=== PATIENT | female | born 1935 | race Caucasian/White ===

== ENCOUNTER → 2019-02-15 | Outpatient (CLI) | payer MEDICARE, OTHER ==
[~2019-02-15] MED LIST: ACET650SUP PR; ALBU3IS INH; ALBU90OI INH; AMLO5 PO; ASCO500; ASPI325; ASPI81CH PO; ASPI81EC PO; ATEN25 PO; ATEN50 PO; ATOR40TA PO; AZIT250 PO; BENZ100A PO; CLOP75; CLOP75 PO; Cyclobenzaprine5 MG PO; FURO20 PO; GUAI120S1 PO; HYDACE5 PO; HYDACE5325 PO; HYDCHL25 PO; ISOMON60ER PO; LISI20 PO; LISI5 PO; LOSHYD; MULVITA PO; NEBI5 PO; NITR.4SL SL; Norco 5-325 Ta1 EACH PO; OXYC5 PO; POLY17UD PO; POLY500 PO; POTCHL10ER PO; PRAV20 PO; PRED10 PO; PROACE100 PO; QUIN325 PO; RANI150 PO; SIMV40 PO; SOTO80 PO; SPACE CHAMBER1 EACH MC; WARF2.5 PO; WARF5 PO; Zithromax250 MG PO
== END | disposition home or self-care (01) ==
LOC: LAB 17:23 → LAB SHORT 17:23
DX: R39.89 Other symptoms and signs involving the genitourinary system (principal)
CPT/HCPCS: 87086

== ENCOUNTER → 2019-06-02 | Outpatient (CLI) | payer MEDICARE, OTHER ==
[2019-06-03 15:07] LABS: HPV 16 Negative (Negative); HPV 18 Negative (Negative); HPV OTHER HR TYPES Negative (Negative)
== END | disposition home or self-care (01) ==
LOC: LAB SHORT 12:43 → LAB 12:43
PROVIDERS: Nurse Practitioner Women's Health
DX: Z01.419 Encounter for gynecological examination (general) (routine) without abnormal findings (principal); Z91.89 Other specified personal risk factors, not elsewhere classified
CPT/HCPCS: 87624; G0123

== ENCOUNTER 2020-03-28 11:23 | Emergency (ER) | payer MEDICARE, OTHER ==
[~2020-03-28] VITALS: Ht 162.6 cm; Wt 49.9 kg
[2020-03-28] MEDS ORDERED: Ultram50 MG PO (14:21)
== END 2020-03-28 14:27 | disposition home or self-care (01) ==
LOC: ER 11:23
DX: G44.209 Tension-type headache, unspecified, not intractable (principal)
CPT/HCPCS: 70450; 99284-25

== ENCOUNTER 2020-04-01 17:41 | Emergency (ER) | payer MEDICARE, OTHER ==
[~2020-04-01] VITALS: Ht 162.6 cm; Wt 49.4 kg
[~2020-04-01 17:41] MED LIST changes: +Ultram50 MG PO
[2020-04-01 20:09] LABS: International Normalized Ratio 1.74
== END 2020-04-01 22:06 | disposition home or self-care (01) ==
LOC: ER 17:41
PROVIDERS: Emergency Medicine
DX: K29.70 Gastritis, unspecified, without bleeding (principal); R79.1 Abnormal coagulation profile; I71.4 Abdominal aortic aneurysm, without rupture; E78.5 Hyperlipidemia, unspecified; I10 Essential (primary) hypertension; F41.9 Anxiety disorder, unspecified; Z95.5 Presence of coronary angioplasty implant and graft; Z86.79 Personal history of other diseases of the circulatory system; Z79.01 Long term (current) use of anticoagulants; Z86.73 Personal history of transient ischemic attack (TIA), and cerebral infarction without residual deficits; Z95.0 Presence of cardiac pacemaker; Z95.1 Presence of aortocoronary bypass graft; Z88.1 Allergy status to other antibiotic agents; Z88.5 Allergy status to narcotic agent; Z79.899 Other long term (current) drug therapy
CPT/HCPCS: 71275; 74175; 80053; 84484; 85025; 85379; 85610; 99284-25; Q9967

== ENCOUNTER → 2020-09-21 | Outpatient (CLI) | payer MEDICARE ==
[~2020-09-21] MED LIST changes: +TRAZ50 PO
[2020-09-21 15:20] LABS: BASOPHILS ABSOLUTE AUTO 0.03 K/mm3 (0.00-0.23); BASOPHILS PERCENT AUTO 0 % (0-2); EOSINOPHILS ABSOLUTE AUTO 0.07 K/mm3 (0.00-0.68); EOSINOPHILS PERCENT AUTO 1 % (0-6); Hematocrit 40.1 % (33.0-51.0); Hemoglobin 13.5 g/dL (11.5-16.0); IMMATURE GRAN ABSOLUTE AUTO 0.05 K/mm3 (0.00-0.10); IMMATURE GRAN PERCENT AUTO 1 % (0-1); LYMPHOCYTES ABSOLUTE AUTO 2.18 K/mm3 (0.84-5.20); LYMPHOCYTES PERCENT AUTO 21 % (21-46); MONOCYTES ABSOLUTE AUTO 0.96 K/mm3 (0.16-1.47); MONOCYTES PERCENT AUTO 9 % (4-13); Mean Corpuscular HGB 31.4 pg (26.0-34.0); Mean Corpuscular HGB Conc 33.7 g/dL (31.5-36.5); Mean Corpuscular Volume 93 fL (80-100); Mean Platelet Volume 9.7 fL (9.1-12.4); NEUTROPHILS ABSOLUTE AUTO 7.08 K/mm3 (1.96-9.15); NEUTROPHILS PERCENT AUTO 68 % (41-73); Platelet Count 265 K/mm3 (150-400); RDW Coefficient Variation 14.1 % (11.7-14.2); RDW Standard Deviation 48.7 fL (35.1-46.3); White Blood Cell Count 10.37 K/mm3 (4.00-11.30)
[2020-09-21 15:45] LABS: Alanine Aminotransfer (ALT/SGP 18 U/L (12-78); Albumin, Blood 3.2 g/dL (3.4-5.0); Alk Phos 97 U/L (50-136); Anion Gap 6 mmol/L (6-16); Aspartate Aminotrans (AST/SGOT 21 U/L (12-37); Bilirubin, Total 0.4 mg/dL (0.1-1.0); Blood Urea Nitrogen 16 mg/dL (8-24); Bun/Creatinine Ratio 21.9 (12.0-20.0); CO2, Blood 31 mmol/L (21-32); Chloride, Blood 94 mmol/L (98-108); Creatinine, Blood 0.73 mg/dL (0.40-1.00); Globulin, Blood 3.1 g/dL (2.2-4.0); Glomerular Filtration Rate >60 (60-); Glucose, Blood 109 mg/dL (70-99); Potassium, Blood 4.1 mmol/L (3.5-5.5); Sodium, Blood 131 mmol/L (136-145); Total Protein, Blood 6.3 g/dL (6.4-8.2)
[2020-09-21 18:25] LABS: Appearance, Urine Clear (Clear); Bilirubin, Urine Neg (Neg); Blood, Urine Neg (Neg); Color, Urine Yellow (P-Yellow); Glucose Qualitative, Urine Neg (Neg); Ketones, Urine Neg (Neg); Leukocyte Esterase, Urine 2+ (Neg); Nitrite, Urine Neg (Neg); Protein, Urine Neg (Neg); Urobilinogen, Urine NORM (Normal); pH, Urine 6.5 (5.0-8.0)
[2020-09-21 18:58] LABS: Red Blood Cells, Urine 0-2 /hpf (0-2)
[2020-09-21 18:59] LABS: Bacteria Few /hpf; Squamous Epithelial Cells Few /hpf (Few)
== END | disposition home or self-care (01) ==
LOC: LAB SHORT 15:14 → LAB 15:14
PROVIDERS: Registered Nurse
DX: R10.9 Unspecified abdominal pain (principal)
CPT/HCPCS: 80053; 81001; 85025; 87086

== ENCOUNTER → 2020-11-10 | Outpatient (CLI) | payer MEDICARE ==
[2020-11-10 12:24] LABS: International Normalized Ratio 2.29; Prothrombin Time Results 23.4 Sec (9.7-11.5)
[2020-11-10 12:46] LABS: Anion Gap 5 mmol/L (6-16); Blood Urea Nitrogen 20 mg/dL (8-24); Bun/Creatinine Ratio 24.6 (12.0-20.0); CO2, Blood 31 mmol/L (21-32); Calcium, Blood 9.3 mg/dL (8.5-10.1); Chloride, Blood 104 mmol/L (98-108); Creatinine, Blood 0.81 mg/dL (0.40-1.00); Glomerular Filtration Rate >60 (60-); Glucose, Blood 97 mg/dL (70-99); Potassium, Blood 4.6 mmol/L (3.5-5.5); Sodium, Blood 140 mmol/L (136-145)
== END | disposition home or self-care (01) ==
LOC: LAB 09:50 → LAB SHORT 09:50
PROVIDERS: Registered Nurse
DX: Z79.01 Long term (current) use of anticoagulants (principal); Z51.81 Encounter for therapeutic drug level monitoring; E87.1 Hypo-osmolality and hyponatremia
CPT/HCPCS: 80048; 85610

== ENCOUNTER 2021-02-16 11:05 | Emergency (ER) | payer MEDICARE ==
[~2021-02-16] VITALS: Ht 162.6 cm; Wt 46.7 kg
[~2021-02-16 11:05] MED LIST changes: -TRAZ50 PO
[2021-02-16] MEDS ORDERED: TRAZ50 PO (11:27)
[2021-02-16 11:54] LABS: BASOPHILS ABSOLUTE AUTO 0.07 K/mm3 (0.00-0.23); BASOPHILS PERCENT AUTO 1 % (0-2); EOSINOPHILS ABSOLUTE AUTO 0.17 K/mm3 (0.00-0.68); EOSINOPHILS PERCENT AUTO 2 % (0-6); Hematocrit 40.8 % (33.0-51.0); Hemoglobin 13.6 g/dL (11.5-16.0); IMMATURE GRAN ABSOLUTE AUTO 0.03 K/mm3 (0.00-0.10); IMMATURE GRAN PERCENT AUTO 0 % (0-1); LYMPHOCYTES ABSOLUTE AUTO 2.75 K/mm3 (0.84-5.20); LYMPHOCYTES PERCENT AUTO 28 % (21-46); MONOCYTES ABSOLUTE AUTO 0.79 K/mm3 (0.16-1.47); MONOCYTES PERCENT AUTO 8 % (4-13); Mean Corpuscular HGB 31.5 pg (26.0-34.0); Mean Corpuscular HGB Conc 33.3 g/dL (31.5-36.5); Mean Corpuscular Volume 94 fL (80-100); Mean Platelet Volume 9.6 fL (9.1-12.4); NEUTROPHILS ABSOLUTE AUTO 5.92 K/mm3 (1.96-9.15); NEUTROPHILS PERCENT AUTO 61 % (41-73); Platelet Count 186 K/mm3 (150-400); RDW Coefficient Variation 15.2 % (11.7-14.2); Red Blood Cell Count 4.32 M/mm3 (3.80-5.20); White Blood Cell Count 9.73 K/mm3 (4.00-11.30)
[2021-02-16 12:06] LABS: International Normalized Ratio 2.42; Prothrombin Time Results 24.9 Sec (9.7-11.5)
[2021-02-16 12:13] LABS: Alanine Aminotransfer (ALT/SGP 26 U/L (12-78); Albumin, Blood 3.6 g/dL (3.4-5.0); Albumin/Globulin Ratio 1.1 (0.8-1.8); Alk Phos 102 U/L (50-136); Anion Gap 5 mmol/L (6-16); Aspartate Aminotrans (AST/SGOT 30 U/L (12-37); Bilirubin, Total 0.3 mg/dL (0.1-1.0); Blood Urea Nitrogen 21 mg/dL (8-24); Bun/Creatinine Ratio 27.6 (12.0-20.0); CO2, Blood 29 mmol/L (21-32); Calcium, Blood 9.1 mg/dL (8.5-10.1); Chloride, Blood 104 mmol/L (98-108); Creatinine, Blood 0.76 mg/dL (0.40-1.00); Globulin, Blood 3.3 g/dL (2.2-4.0); Glomerular Filtration Rate >60 (60-); Glucose, Blood 101 mg/dL (70-99); Potassium, Blood 4.2 mmol/L (3.5-5.5); Sodium, Blood 138 mmol/L (136-145); Total Protein, Blood 6.9 g/dL (6.4-8.2)
== END 2021-02-16 14:02 | disposition home or self-care (01) ==
LOC: ER 11:05
PROVIDERS: Emergency Medicine
DX: R20.2 Paresthesia of skin (principal); R20.0 Anesthesia of skin; F17.210 Nicotine dependence, cigarettes, uncomplicated; Z88.1 Allergy status to other antibiotic agents; Z88.5 Allergy status to narcotic agent; Z79.01 Long term (current) use of anticoagulants; Z95.1 Presence of aortocoronary bypass graft; Z79.899 Other long term (current) drug therapy
CPT/HCPCS: 70450; 80053; 85025; 85610; 93005; 93010; 99284-25

== ENCOUNTER → 2021-06-15 | Outpatient (CLI) | payer MEDICARE ==
[~2021-06-15] MED LIST changes: +TRAZ50 PO
== END | disposition home or self-care (01) ==
LOC: LAB SHORT 16:23 → LAB 16:23
DX: R35.0 Frequency of micturition (principal)
CPT/HCPCS: 87086

== ENCOUNTER 2021-08-18 11:12 | Emergency (ER) | payer MEDICARE ==
[~2021-08-18] VITALS: Ht 154.9 cm; Wt 44.5 kg
[~2021-08-18 11:12] MED LIST changes: +DOCU100 PO; +LIDO700A20 TOP
[2021-08-18] MEDS ORDERED: DOCU100 PO (11:36)
[2021-08-18] MEDS ORDERED: CALCIUM-MAGNES1 EAC9 PO (11:37)
[2021-08-18] MEDS ORDERED: SENNA LAXATIVE8.6 MG PO (11:37)
[2021-08-18 12:03] LABS: Bilirubin, Urine Neg (Neg); Blood, Urine 1+ (Neg); Glucose Qualitative, Urine 3+ (Neg); Ketones, Urine Neg (Neg); Leukocyte Esterase, Urine 1+ (Neg); Nitrite, Urine Neg (Neg); Protein, Urine 2+ (Neg); Urobilinogen, Urine NORM (Normal); pH, Urine 6.5 (5.0-8.0)
[2021-08-18 12:05] LABS: Appearance, Urine Hazy (Clear)
[2021-08-18 12:11] LABS: Source, Urine Voided
[2021-08-18 12:12] LABS: Color, Urine Yellow (P-Yellow)
[2021-08-18 12:15] LABS: Bacteria Rare /hpf; Red Blood Cells, Urine 0-2 /hpf (0-2); Squamous Epithelial Cells Rare /hpf (Few); White Blood Cells, Urine 0-2 /hpf (0-5)
[2021-08-18 12:16] LABS: Transitional Epithelial Cells Rare /hpf (0-Rare)
[2021-08-18] MEDS ORDERED: LIDO700A20 TOP (14:02)
== END 2021-08-18 14:56 | disposition home or self-care (01) ==
LOC: ER 11:12
PROVIDERS: Emergency Medicine
DX: M54.50 Low back pain, unspecified (principal); Z88.5 Allergy status to narcotic agent; E78.5 Hyperlipidemia, unspecified; I10 Essential (primary) hypertension; F17.210 Nicotine dependence, cigarettes, uncomplicated
CPT/HCPCS: 81001; 87086; 93005; 93010; 96374; 96375; 96376; 99284-25; A9270; J1790